=== PATIENT | male | born 1995 | race Caucasian/White ===

== ENCOUNTER → 2021-01-01 | Outpatient (CLI) | payer OTHER, SELFPAY | END | disposition home or self-care (01) | LOC: LABSPEC 16:05 | PROVIDERS: PCP Family Medicine; Referring Provider Physician Assistant Surgical; Visit Provider Physician Assistant Surgical | DX: Z20.822 Contact with and (suspected) exposure to COVID-19 (principal) | CPT/HCPCS: 87635; U0005; U0003 ==

== ENCOUNTER 2021-03-05 06:43 | Day surgery (SDC) | payer OTHER, SELFPAY ==
[2021-03-05] VITALS (9 sets, daily range): BP systolic 125–144; BP diastolic 77–89; PULSE 77–96; RESP 16; TEMP 36.3–37; O2SAT 91–95; BMI 28.0
[2021-03-05] MEDS: Lactated Ringers 1,000 ML 100 ML IV ×3 (07:00→12:45)
--- NOTE | 2021-03-05 08:15 | NASAL_PTH ---
PATIENT: CRISTIAN WHITMAN [place] [facility] [place][id number] AGE/SX: 25/M ROOM: RE03/05/[address]: Dr. Sean Iqbal MD : [id number] BED: DIS: 03/05/2021 SPEC #: [id number] RECD: 03/05/21 14:40 STATUS: CORBIN REMisti #: [id number] TRISTAN: 03/05/21 08:[address]: Sean Iqbal DEPT: SURGICAL PATHOLOGY RECD BY: Daina Paul ENTERED: 03/06/21 10:32 SP TYPE: NASAL SPEC OTHR DR: Cintia Feng, PHARMACIST INTERN-C Tissues: A - Ethmoid sinus, NOS B - Ethmoid sinus, NOS Procedures: Decalcification bone/plaque Surgery Specimen Level IV HEADER OPERATION: Open septoplasty with valve repair, turbinate reduction PRE-OP DIAGNOSIS: Nasal airway obstruction, deviated septum, chronic pansinusitis TISSUE SUBMITTED: A ? Right sinus contents and turbinates, B ? Left sinus contents and turbinates MICROSCOPIC DIAGNOSIS A. Right sinus and turbinates, excision: Consistent with chronic sinusitis. Fragments of bone with no pathologic change. B. Left sinus and turbinates, excision: Consistent with chronic sinusitis. Fragments of bone with no pathologic change. AM:jozef 03/11/2021 MICROSCOPIC DESCRIPTION Slides are reviewed. GROSS DESCRIPTION A - Received in fixative is one container labeled with the patient's name and designated right sinus contents and turbinate. The specimen consists of multiple fragments of hobbs soft tissue mixed with fragments of bone and turbinate that in aggregate measure 4 x 3 x 0.5 cm. A fragment of hobbs-pink polyp is also noted. The entire specimen is submitted in two cassettes after decalcification. B - Received in fixative is one container labeled with the patient's name and designated left sinus contents and turbinate. The specimen consists of multiple fragments of hemorrhagic soft tissue mixed with fragments of bone and turbinate that in aggregate measure 4.5 x 4 x 1 cm. Radioisotope Production Operator tissue is submitted in two cassettes after decalcification. / EZN:jozef 03/06/21 TC: 3 CPT: 59323 x2, 50552 x2
--- NOTE | 2021-03-05 08:26 | PCM.DC ---
Discharge Instructions Diet Discharge Diet: No restrictions Activity Discharge Activity: Return to Normal Activity Dressing / Incision Call your doctor if your incision/area has: Increased Pain/ Swelling Additional Dressing/Incision Instructions:: sleep with head of bed elevated. mupirocin to nose and incision twice daily. saline to nose 5 times daily. keep the bridge of your nose dry; however, the morning of your second follow up, get the bridge of your nose wet so the cast comes off easily in clinic. Follow Up Care Please Follow Up With: salima When: this thursday Test Results: Test results from this visit will be discussed in further detail at your follow-up appointment, if applicable. Discharge Plan Admission Attending Provider: Carlos Iqbal Primary Care Provider: Cintia Feng NP Discharge Orders/Prescriptions Prescriptions: No Action fluticasone propion-salmeterol [Wixela Inhub] 250-50 mcg/dose blister with device 1 inh INHALATION BID RF: 0 albuterol sulfate 90 mcg/actuation HFA aerosol inhaler 1 - 2 puff INHALATION PRN PRN (Reason: ASTHMA) RF: 0 cholecalciferol (vitamin D3) [Vitamin D3] 25 mcg (1,000 unit) Tablet 25 mcg PO DAILY RF: 0 Disposition Discharge Orders: Discharge Patient (Routine); Ordered 03/05/21 Ordered By: Dr. Carlos Iqbal
--- NOTE | 2021-03-05 08:30 | PCM.OPRPT ---
Problems Associated Problem List Diagnoses (1) Chronic pansinusitis: (2) Nasal congestion: (3) Polyp of nasal sinus: (4) Nasal septal deviation: (5) Nasal valve collapse: (6) Hypertrophy of inferior nasal turbinate: Report of Operation Date of Procedure: 03/05/21 Pre-Operative Diagnosis: 1. chronic pansinusitis 2. nasal septal deviation 3. polyp of nasal cavity 4. inferior turbinate hypertrophy, right and left 5. nasal valve collapse, right and left Post-Operative Diagnosis: 1. chronic pansinusitis 2. nasal septal deviation 3. polyp of nasal cavity 4. inferior turbinate hypertrophy, right and left 5. nasal valve collapse, right and left Surgery/Procedure Performed:: 1. open septorhinoplasty 2. submucous resection inferior turbinates, right and left 3. correction internal nasal valve collapse, right and left 4. endoscopic maxillary antrostomy with removal of contents, right and left 5. endoscopic total ethmoidecotmy, right and left 6. endoscopic sphenoidotomy with removal of contents, right and left 7. endoscopic frontal sinus exploration removal of contents, right and left 8. extensive removal nasal polyps, right and left Surgeon: Carlos Iqbal Type of Anesthesia: General Complications On the day of the procedure, after appropriate informed consent was obtained, the patient was brought to the operating room and placed in a supine position on the operating room table. The patient was placed under general endotracheal anesthesia by the anesthesiologist. The endotracheal tube was secured. The eyes were taped. The table was rotated 90 degrees towards the surgeon. Lacri-Lube was placed in the eyes and Tegaderm was placed over the eyes. The nose was injected with 1% lidocaine with epinephrine. The face was prepped and draped in sterile fashion. An inverted-V columellar incision was made with a [place] blade. This traversed into the left and right marginal incisions in the nose. It was opened with three-point retraction and an Iris scissors. The left and right lower lateral cartilages were skeletonized. This was taken to the left scroll region and the left upper lateral cartilages were skeletonized as was the right scroll region and right upper lateral cartilage. The anterior septal angle was found by lateralizing the medial crura. However, it was severely deviated to the left and off the maxillary crest. This was carefully dissected using the [place]-tip Bovie. The submucoperichondrial flaps were created with the Dade elevator, first on the left and then the right posteriorly to the bony cartilaginous junction and inferiorly to the maxillary crest. of note, the patient had a large preexisting well-healed posterior perforation in his septum. a 1.5cm L strut was maintained and the remainder of the cartilaginous septum was removed with a D knife or hesham elevator. the right and left upper lateral cartilages were disarticulated from the nasal septum with a 15 blade. 8mm x 2mm internal wire coating operator metal grafts were sutured into place between the upper lateral cartilages and the nasal septum with 4-0 PDS. the head of the right and left turbinates were injected with lidocaine/epinephrine. the head of the left inferior turbinate was incised with a 15 blade, dissected submucosally with a hesham elevator, reduced using suction electrocautery and outfractured using a boies elevator. the head of the right inferior turbinate was incised with a 15 blade, dissected submucosally with a hesham elevator, reduced using suction electrocautery and outfractured using a boies elevator. the submucoperichondrial flaps were reapproximated wtih 4-0 chromic, the inverted V columellar incision with 7-0 vicryl, and the marginal incisions with 4-[address] image guidance navigation was unable to be set up after multiple attempts and face mask changes. the zero degree endoscope was used to evaluate the nasal cavity. the superior attachment of the right and left middle turbinate and uncinate processes were injected with lidocaine/epinephrine. the left nasal cavity was evaluated. the middle turbinate was medialized. a large amount of polyps were removed from the middle meatus, sphenoethmoidal recess and frontal recess. a maxillary antrostomy and uncinectomy were performed with a hesham elevator and a khris cut. the antrostomy was widened with a back-biter. purulent material was evacuated. the ethmoid bulla was entered bluntly with the suction. a total ethmoidectomy was performed with a curette and an upgoing blakesley. this was taken superiorly to the skull base and laterally to the lamina. a stankewicz maneuver was performed and no laminar defect was noted. the natural sphenoid os was widened with the microdebrider and contents were evacuated. fungus was removed from the sphenoethmoidal recess. the frontal recess was explored and contents were evacuated. hemostasis was achieved with suction cautery; krzysztof was placed. the right nasal cavity was evaluated. the middle turbinate was medialized. a large amount of polyps were removed from the middle meatus, sphenoethmoidal recess and frontal recess. a maxillary antrostomy and uncinectomy were performed with a hesham elevator and a khris cut. the antrostomy was widened with a back-biter. purulent material was evacuated. the ethmoid bulla was entered bluntly with the suction. a total ethmoidectomy was performed with a curette and an upgoing blakesley. this was taken superiorly to the skull base and laterally to the lamina. a stankewicz maneuver was performed and no laminar defect was noted. the natural sphenoid os was widened with the microdebrider and contents were evacuated. fungus was removed from the sphenoethmoidal recess. the frontal recess was explored and contents were evacuated. hemostasis was achieved with suction cautery; krzysztof was placed. perez splints were sutured into place. a dorsal nasal splint was placed. a nasogastric tube was inserted orally and contents were evacuated. the table was rotated 90 degrees toward the anesthesiologist and was subsequently extubated uneventfully. he was transferred to the PACU in stable condition.
[2021-03-05] MEDS: Lidocaine 1% /Epi 1:100 (20ml) 20 ML Vial (09:05)
[2021-03-05] MEDS: Oxymetazoline 0.05% 1 SPRAY SPRAY.BTL 15 SPRAY ×2 (09:07→11:59)
[2021-03-05] MEDS: Mupirocin Ointment 22gm Tube 1 APPLIC (10:13)
--- NOTE | 2021-03-05 15:01 | EKG12_ITS ---
Test Reason : PRE OP Blood Pressure : / mmHG Vent. Rate : 090 BPM Atrial Rate : 090 BPM P-R Int : 146 ms QRS Dur : 092 ms QT Int : 360 ms P-R-T Axes : 075 077 048 degrees QTc Int : 440 ms Normal sinus rhythm Normal ECG Confirmed by ABIGAIL DRISCOLL, NICOLAS ([id number]), hot mill supervisor MACIEL GOLDMAN ([id number]) on 03/08/2021 1:55:52 PM Referred By: Carlos Iqbal Confirmed By:NICOLAS HAYES MD
[2021-03-05] MEDS: HYDROcodone Bitartrate/Apap 5/325 Tablet PO (15:16)
--- NOTE | 2021-03-05 15:35 | SUR.PHASEII ---
pt complained of chest/arm pain bilaterally, dr. Morgan advised, EKG done, Pt ok to go home and instructed to return to ER if pain persists or worsens.
== END 2021-03-05 16:36 | disposition home or self-care (01) ==
LOC: SDC 06:48 → AC 06:48
PROVIDERS: PCP Nurse Practitioner Primary Care; Referring Provider Otolaryngology; Visit Provider Otolaryngology
PROC: (CPT 30140; principal; 2021-03-05 07:45)
DX: J32.4 Chronic pansinusitis (principal); J33.9 Nasal polyp, unspecified; J34.2 Deviated nasal septum; J34.3 Hypertrophy of nasal turbinates; M95.0 Acquired deformity of nose; F41.9 Anxiety disorder, unspecified; F32.A Depression, unspecified; J45.909 Unspecified asthma, uncomplicated; Z79.899 Other long term (current) drug therapy
CPT/HCPCS: 30140; 30420; 30468; 31253; 31259; 31267; 87426; 88305; 88311; 93005; C9803; J7120; J2405

== ENCOUNTER → 2022-02-03 | Outpatient (CLI) | payer OTHER, SELFPAY ==
[2022-02-03 08:52] LABS: Absolute Lymphocyte Count 2.18 X10^3/uL (0.83-4.51); Absolute Neutrophil Count 4.3 X10^3/uL (2.0-7.7); Basophil# 0.12 X10^3/uL; Basophil% 1.3 % (0-1); Eosinophils% 21.8 % (0-5); Hematocrit 48.8 % (40-54); Hemoglobin 16.9 g/dL (13.0-16.5); Lymphocyte # 2.18 X10^3/ul (0.83-4.51); Lymphocyte % 23.7 % (19-41); Mean Corp Hgb Conc 34.6 g/dL (32-36); Mean Corpuscular Hgb 29.9 pg (27.0-32.0); Mean Corpuscular Volume 86.2 fL (80-94); Mean Platelet Vol. 10.4 fl (6.2-12.0); Monocyte# 0.51 X10^3/uL; Monocyte% 5.5 % (0-10); NRBC Flagged by Analyzer 0 % (0-5); Neutrophil # 4.34 X10^3/uL (2.7-7.7); Neutrophil % 47.3 % (47-70); Platelet Count 268 K/mm3 (150-450); RBC Distribution Width CV 12.1 % (11.6-14.6); RBC Distribution Width SD 38.4 fl (35.1-43.9); Red Blood Count 5.66 M/mm3 (4.6-6.2); White Blood Count 9.2 K/mm3 (4.4-11.0)
== END | disposition home or self-care (01) ==
PROVIDERS: PCP Nurse Practitioner Primary Care; Referring Provider Internal Medicine Pulmonary Disease; Visit Provider Internal Medicine Pulmonary Disease
DX: J45.50 Severe persistent asthma, uncomplicated (principal); J30.1 Allergic rhinitis due to pollen
CPT/HCPCS: 36415; 85025

== ENCOUNTER 2022-03-04 08:26 | Emergency (ER) | payer OTHER, SELFPAY ==
[2022-03-04] VITALS (9 sets, daily range): BP systolic 125–132; BP diastolic 79–89; PULSE 106–119; RESP 16–28; TEMP 36.7; O2SAT 91–95; BMI 27.7
--- NOTE | 2022-03-04 08:53 | RAD_ITS ---
STUDY: X-RAY CHEST REASON FOR EXAM: Male, 26 years old. Cough, SOB TECHNIQUE: Single AP portable view of the chest. COMPARISON: None. FINDINGS: EKG electrodes are seen. The lungs are clear and expanded. There is no demonstrated pleural abnormality. Normal size heart. Normal mediastinum and yuli. Normal visualized pulmonary arteries. Normal visualized aortic arch and descending thoracic aorta. Normal visualized thoracic spine. Normal visualized ribs, clavicles, and shoulders. There is no demonstrated abnormality of the visualized soft tissue structures of the upper abdomen. RAD/Chest 1 View (Portable) IMPRESSION: Normal x-ray examination of the chest. Electronically Signed: Avtar Wen MD at 9:51 EDT ,
--- NOTE | 2022-03-04 08:54 | EX.ED.DYSGE1 ---
HPI History of Present Illness Chief Complaint: Cough Informant: patient Onset/Context/Timing Onset: Days (4 to 5 days) Context: Gradual Onset Timing: Waxes and wanes Current Severity: Mild Maximum Severity: Moderate Narrative Narrative: Patient presents with 4 to 5-day history of cough and congestion. He has a history of asthma and has had increased wheezing. No fever has been noted. He does have body aches. He did not take a COVID test. PFSH PFSH Medical History Alcohol use Anxiety Asthma Depression History of steroid therapy Injury of head and neck Non-smoker Smoker Home Medications albuterol sulfate 90 mcg/actuation aerosol inhaler 1 - 2 puff inhalation PRN PRN ASTHMA 02/26/21 [History Last Taken Unknown] cholecalciferol (vitamin D3) 25 mcg (1,000 unit) tablet (Vitamin D3) 25 mcg PO DAILY 02/26/21 [History Last Taken Unknown] albuterol sulfate 2.5 mg/3 mL (0.083 %) solution for nebulization 2.5 mg (3 mL) inhalation Q4H PRN #25 vials 03/04/22 [Rx Last Taken Unknown] albuterol sulfate 90 mcg/actuation aerosol inhaler (Ventolin HFA) 2 puff inhalation Q4H PRN PRN Wheezing ##1 03/04/22 [Rx Last Taken Unknown] fluticasone 500 mcg-salmeterol 50 mcg/dose blistr powdr for inhalation 1 inh inhalation DAILY 03/04/22 [History Last Taken Unknown] prednisone 20 mg tablet 60 mg PO DAILY #15 tabs 03/04/22 [Rx Last Taken Unknown] Allergy/AdvReac Type Severity Reaction Status Date / Time No Known Allergies Allergy Verified 03/04/22 08:26 Surgical History Hx of nasal septoplasty Social History Smoking Status: Current some day smoker tobacco type: smokeless tobacco alcohol intake: current alcohol intake frequency: a few times a month Alcohol type: beer ROS ROS ED Constitutional Constitutional ED: Denies chills or fever(s) Eyes Eyes: Denies change in vision or discharge from eye(s) ENT ENT ED: Reports other Details: Congestion ; Denies discharge from eye(s), rhinorrhea or sore throat Cardiovascular Cardiovascular: Reports chest pain; Denies palpitations Respiratory/Chest Respiratory/Chest: Reports cough, dyspnea and other Details: Wheezing Gastrointestinal Gastrointestinal: Denies abdominal pain, diarrhea, nausea or vomiting Genitourinary Genitourinary ED: Denies difficulty urinating or dysuria Musculoskeletal Musculoskeletal: Reports myalgias; Denies back pain or extremity pain Integumentary Denies Abrasions or rash Neurologic Neurologic: Denies headache(s) or weakness Psychiatric Psychiatric: Denies anxiety or depression Allergic/Immunologic Allergic/Immunologic ED: Denies lip swelling or urticaria EXAM Physical Exam Const Vital Signs: 03/04/22 08:27 03/04/22 08:35 03/04/22 08:59 Temperature 98.0 F 98.0 F Temperature Source Temporal Temporal Pulse Rate 117 H 117 H Respiratory Rate 19 H 19 H Respiratory Effort Short of Breath Labored Respiratory Depth Normal Respiratory Pattern Normal Blood Pressure 132/89 H 132/89 H Blood Pressure Mean 103 103 Pulse Ox 91 91 Oxygen Delivery Method Room Air Room Air Room Air 03/04/22 09:23 03/04/22 09:23 03/04/22 09:23 Temperature Temperature Source Pulse Rate 106 H Respiratory Rate 22 H 20 H Respiratory Effort Respiratory Depth Respiratory Pattern Blood Pressure Blood Pressure Mean Pulse Ox 95 95 Oxygen Delivery Method Room Air Room Air 03/04/22 10:12 03/04/22 10:45 03/04/22 10:59 Temperature Temperature Source Pulse Rate 119 H 113 H 114 H Respiratory Rate 18 25 H 16 Respiratory Effort Respiratory Depth Respiratory Pattern Blood Pressure 125/79 H Blood Pressure Mean 94 Pulse Ox 92 Oxygen Delivery Method Room Air 03/04/22 11:02 Temperature Temperature Source Pulse Rate Respiratory Rate Respiratory Effort Respiratory Depth Respiratory Pattern Blood Pressure Blood Pressure Mean Pulse Ox 91 Oxygen Delivery Method Room Air Positive well nourished and well developed General Appearance ED: well developed HEENT Reports normocephalic and head/scalp atraumatic Eyes PERRL and EOMs intact bilaterally Neck supple Chest Wall inspection of chest normal and palpation of chest normal Resp Resp Narrative: Expiratory wheezes throughout. Cardio regular rhythm Rate: tachycardic GI normal to inspection, nondistended, normoactive bowel sounds Palpation: soft Extremity normal to inspection Neuro oriented x3 and no sensory deficits noted Sensorium / Orientation: alert Motor Exam: strength 5/5 throughout Psych mental status grossly normal Skin no rashes or lesions noted MDM MDM MDM Narrative Medical decision making narrative: COVID swab obtained. Portable chest x-ray ordered along with prednisone and aerosol treatments. Radiography Diagnostic Testing: Clinical Impression(s) from Imaging Studies Chest X-Ray 03/04/22 08:53 IMPRESSION: Normal x-ray examination of the chest. Electronically Signed: Avtar Wen MD at 9:51 EDT , Treatment and Re-Evaluation Narrative: COVID test is negative. Chest x-ray per my interpretation reveals no focal infiltrate. On repeat evaluation patient is still slightly tachycardic, likely secondary to the [id number] breathing treatments. He does have increased air movement and still has wheezing noted on the left. He states he is feeling like his lungs are opening up. He has plenty of nebulizer solution at home. I will write him a new albuterol inhaler as well as prednisone. Return instructions are provided. Discharge Plan Triage Chief Complaint: Cough ED Provider: Rhona Flanagan Dx/Rx/DC Orders Clinical Impression: URI (upper respiratory infection), Asthma exacerbation Instructions: ED Asthma, Acute (Adult), ED URI, Viral, No Abx (Adult) Prescriptions: New albuterol sulfate [Ventolin HFA] 90 mcg/actuation HFA aerosol inhaler 2 puff inhalation Q4H PRN PRN (Reason: Wheezing) Qty: 1 0RF prednisone 20 mg tablet 60 mg PO DAILY Qty: 15 0RF albuterol sulfate 2.5 mg /3 mL (0.083 %) solution for nebulization 2.5 mg inhalation Q4H PRN Qty: 25 0RF Rx Instructions: Use q4 hours and PRN for wheezing No Action albuterol sulfate 90 mcg/actuation HFA aerosol inhaler 1 - 2 puff INHALATION PRN PRN (Reason: ASTHMA) Label Comments: inhale 1 to 2 puffs by mouth every 4 to 6 hours if needed for cough or wheezing cholecalciferol (vitamin D3) [Vitamin D3] 25 mcg (1,000 unit) Tablet 25 mcg PO DAILY fluticasone propion-salmeterol 500-50 mcg/dose blister with device 1 inh INHALATION DAILY Label Comments: INHALE 1 PUFF TWICE DAILY WITH GOOD ORAL CARE Primary Care Provider: Cintia Feng NP Referrals: Cintia Feng NP, DIMPLING MACHINE OPERATOR-C [Primary Care Provider] - 3-5 Days if not improving Disposition Disposition: Home, Self Care
[2022-03-04] MEDS: predniSONE 20 MG Tablet 60 MG PO (09:19)
[2022-03-04] MEDS: Ipratropium/Albuterol Sulfate 3 ML AMPUL.NEB INHALATION (09:22)
[2022-03-04] MEDS: Albuterol 2.5 MG/3 ML VIAL.NEB. INHALATION ×3 (09:27→10:57)
== END 2022-03-04 11:50 | disposition home or self-care (01) ==
PROVIDERS: Emergency Provider Emergency Medicine; PCP Nurse Practitioner Primary Care; Visit Provider Emergency Medicine
DX: J06.9 Acute upper respiratory infection, unspecified (principal); J45.901 Unspecified asthma with (acute) exacerbation; F17.220 Nicotine dependence, chewing tobacco, uncomplicated; Z20.822 Contact with and (suspected) exposure to COVID-19; Z79.52 Long term (current) use of systemic steroids
CPT/HCPCS: 71045; 87811; 94640; 99251; 99283; G0463

== ENCOUNTER 2022-09-01 07:11 | Emergency (ER) | payer OTHER, SELFPAY ==
[2022-09-01 07:12] VITALS: BP 130/102; PULSE 82; RESP 16; TEMP 36.3; O2SAT 94; BMI 27.0
--- NOTE | 2022-09-01 07:40 | EKG12_ITS ---
Test Reason : CP Blood Pressure : / mmHG Vent. Rate : 079 BPM Atrial Rate : 079 BPM P-R Int : 138 ms QRS Dur : 096 ms QT Int : 378 ms P-R-T Axes : 061 077 055 degrees QTc Int : 433 ms Normal sinus rhythm Normal ECG Confirmed by LAVERNE DRISCOLL, MOISE ([id number]), publications editor MACIEL GOLDMAN ([id number]) on 09/04/2022 9:20:56 AM Referred By: BB Confirmed By:MOISE GALLOWAY MD
--- NOTE | 2022-09-01 07:41 | ED.VIS.CHEST ---
HPI History of Present Illness Chief Complaint: Chest Pain Informant: patient Onset/Context/Timing Onset: Hours (6) Activity at onset: sudden, activity on onset and sleep Timing: Continuous Quality: Positive for Burning and Sharp Location: Substernal (No radiation) Current Severity: Moderate Maximum Severity: Moderate Worsened By: Nothing; Not Worsened By Exertion, Movement of Arm, Movement of Torso, Breathing or Coughing Relieved By: Nothing (Positions, exertion, breathing makes no difference. Tried Tylenol did not help.) Associated Symptoms: Negative for Diaphoresis, Dyspnea, Cough, Fever, Lightheadedness or Palpitations Narrative Narrative: Patient presents with chest discomfort that woke him up in the middle the night. Nonpleuritic, has been there ever since. Has a history of significant asthma especially now in the spring, when his allergies tend to kick in, he states this does not feel like his asthma at all and feels very different, he can tell since he is used to that. He states prior to this, last night for dinner, he and his significant other had [place] and he had steak with his, he remembers swallowing a bite and having a piece of steak get stuck and having to vomit it back out, however he states he did not necessarily vomit he just got it up and then was able to finish his meal. He states getting steak stuck in his esophagus happens not uncommonly. He has never had to have an emergent EGD because of not being able to pass it or get it out. [facility] Medical History Alcohol use Anxiety Asthma Depression History of steroid therapy Injury of head and neck Non-smoker Smoker Home Medications albuterol sulfate 90 mcg/actuation aerosol inhaler 1 - 2 puff inhalation PRN PRN ASTHMA 02/26/21 [History Last Taken Unknown] fluticasone furoate 200 mcg-vilanterol 25 mcg/dose inhalation powder (Breo Ellipta) inhalation 09/01/22 [History Last Taken Unknown] pantoprazole 40 mg tablet,delayed release 40 mg PO DAILY #14 tabs 09/01/22 [Rx Last Taken Unknown] Allergy/AdvReac Type Severity Reaction Status Date / Time No Known Allergies Allergy Verified 09/01/22 07:15 Surgical History Hx of nasal septoplasty Social History Smoking Status: Former smoker alcohol intake: current alcohol intake frequency: a few times a month Alcohol type: beer ROS ROS ED Constitutional Constitutional ED: Denies chills or fever(s) Eyes Eyes: Denies change in vision or diplopia ENT ENT ED: Denies rhinorrhea or sore throat Cardiovascular Cardiovascular: Reports chest pain; Denies palpitations Respiratory/Chest Respiratory/Chest: Denies cough or dyspnea Gastrointestinal Gastrointestinal: Denies abdominal pain, diarrhea or nausea Genitourinary Genitourinary ED: Denies dysuria or hematuria Musculoskeletal Musculoskeletal: Denies back pain or neck pain Integumentary Denies abscess or rash Neurologic Neurologic: Denies headache(s), paresthesias or weakness Psychiatric Psychiatric: Denies anxiety or suicidal thoughts EXAM Physical Exam Const Vital Signs: 09/01/22 07:12 Temperature 97.4 F L Temperature Source Temporal Pulse Rate 82 Respiratory Rate 16 Blood Pressure 130/102 H Blood Pressure Mean 111 Pulse Ox 94 Oxygen Delivery Method Room Air Positive well nourished and well developed General Appearance ED: well developed and NAD HEENT Reports moist mucous membranes normocephalic and atraumatic Eyes PERRL and EOMs intact bilaterally Neck full ROM and supple Chest Wall inspection of chest normal and palpation of chest normal Resp normal respiratory effort Auscultation: wheezes expiratory wheezes (Mild) and throughout Cardio regular rate, regular rhythm and no murmurs GI non-distended GI Narrative: Mild epigastric tenderness. No pulsatile mass. No guarding or rebound. Auscultation: normoactive bowel sounds Palpation: soft Back/Spine no CVA tenderness General Back: other FROM Extremity normal to inspection General Extremety ED: Negative for edema, pulses abnormal or tenderness General Extremity: Negative for edema or pulses abnormal Neuro oriented x3, CN's II-XII intact bilaterally and no sensory deficits noted Sensorium / Orientation: awake and alert Motor Exam: strength 5/5 throughout Skin no rashes or lesions noted and no wounds MDM MDM MDM Narrative Medical decision making narrative: I suspect esophageal etiology of this discomfort, especially in context of his normal EKG and history of dysphagia with the episode that occurred last night prior to going to bed. I given a GI cocktail and monitored him, he states the burning resolved as a result of this and he is in agreement with me. I do not think he needs other testing right now. I think his pulse ox 94% is a little borderline because of his asthma he states this is good/normal for him in the spring and he does not feel like he is having an asthma flareup right now. He was given Protonix here, we will give him a 2-week course with instructions for use and follow-up with GI routinely, to evaluate for EGD/dilatation. In discussing this, he states there is a family history of this and his dad and another one of his family members, needing esophageal dilatations for similar issues. Rhythm Strip Rhythm Strip: Sinus Rhythm Rate: 80 Ectopy: None EKG Initial EKG: Attestation: I personally reviewed and interpreted this EKG as follows: Interpretation: Sinus Rhythm and No Acute Injury Pattern Comments: Normal EKG. Rate 79. Discharge Plan Triage Chief Complaint: Chest Pain ED Provider: Stan Whitt Dx/Rx/DC Orders Clinical Impression: Chest pain due to GERD, Esophageal dysphagia Instructions: Medicines for Acid Reflux, ED Dysphagia (Adult) Prescriptions: New pantoprazole 40 mg tablet,delayed release (DR/EC) 40 mg PO DAILY Qty: 14 0RF No Action albuterol sulfate 90 mcg/actuation HFA aerosol inhaler 1 - 2 puff INHALATION PRN PRN (Reason: ASTHMA) Label Comments: inhale 1 to 2 puffs by mouth every 4 to 6 hours if needed for cough or wheezing fluticasone furoate-vilanterol [Breo Ellipta] 200-25 mcg/dose blister with device INHALATION Label Comments: INHALE 1 PUFF BY MOUTH ONCE DAILY. USE GOOD ORAL CARE AFTER USE Primary Care Provider: Cintia Feng NP Referrals: Dallas Renae DO [Med Staff - Active Staff] - (call for appt for EGD evaluation) Cintia Feng NP, CERTIFIED CYTOTECHNOLOGIST-C [Primary Care Provider] - Disposition Disposition: Home, Self Care
[2022-09-01] MEDS: Mag Hydrox/Al Hydrox/Simeth 30 ML UDC PO (07:44)
[2022-09-01] MEDS: Pantoprazole Sodium 40 MG Tablet PO (07:44)
[2022-09-01 08:24] VITALS: BP 138/88; PULSE 87; RESP 18; O2SAT 97
== END 2022-09-01 08:31 | disposition home or self-care (01) ==
PROVIDERS: Emergency Provider Emergency Medicine; PCP Nurse Practitioner Primary Care; Visit Provider Emergency Medicine
DX: R07.9 Chest pain, unspecified (principal); K21.9 Gastro-esophageal reflux disease without esophagitis; Z87.891 Personal history of nicotine dependence; R13.19 Other dysphagia; J45.909 Unspecified asthma, uncomplicated
CPT/HCPCS: 93005; 99284

== ENCOUNTER → 2023-04-30 | Outpatient (CLI) | payer OTHER, SELFPAY ==
[2023-04-30 10:06] LABS: Absolute Lymphocyte Count 2.49 X10^3/uL (0.83-4.51); Absolute Neutrophil Count 4.5 X10^3/uL (2.0-7.7); Basophil# 0.09 X10^3/uL; Eosinophil# 0.81 X10^3/uL; Eosinophils% 9.3 % (0-5); Hematocrit 49.8 % (40-54); Lymphocyte # 2.49 X10^3/ul (0.83-4.51); Lymphocyte % 28.6 % (19-41); Mean Corp Hgb Conc 34.1 g/dL (32-36); Mean Platelet Vol. 10.6 fl (6.2-12.0); Monocyte# 0.78 X10^3/uL; NRBC Flagged by Analyzer 0 % (0-5); Neutrophil # 4.49 X10^3/uL (2.7-7.7); Neutrophil % 51.5 % (47-70); Platelet Count 266 K/mm3 (150-450); RBC Distribution Width CV 12.1 % (11.6-14.6); RBC Distribution Width SD 37.3 fl (35.1-43.9); Red Blood Count 5.86 M/mm3 (4.6-6.2); White Blood Count 8.7 K/mm3 (4.4-11.0)
[2023-05-05 17:07] LABS: Aspirgillus flavus Negative (Neg:<1:1); Aspirgillus fumigatus Negative (Neg:<1:1); Aspirgillus niger Negative (Neg:<1:1); Cytoplasmic Ab (C-ANCA) <1:20 titer (Neg:<1:20); Immunoglobulin E 402 IU/mL (6-495); Perinuclear Ab (P-ANCA) <1:20 titer (Neg:<1:20)
[2023-05-06 06:08] LABS: Alternaria tenuis 0.12 kU/L (Class 0/I); Ash, White <0.10 kU/L (Class 0); Aspergillus fumigatus <0.10 kU/L (Class 0); Bermuda Grass 0.17 kU/L (Class 0/I); Birch <0.10 kU/L (Class 0); Black Walnut 0.13 kU/L (Class 0/I); Cedar, Mountain <0.10 kU/L (Class 0); Cladosporium herbarum <0.10 kU/L (Class 0); Cockroach, American 0.26 kU/L (Class 0/I); Cottonwood 0.14 kU/L (Class 0/I); D farinae Mite 0.55 kU/L (Class I); D pteronyssinus 0.56 kU/L (Class II); Elm, American White 0.11 kU/L (Class 0/I); Immunoglobulin E 484 IU/mL (6-495); Maple/Box Elder <0.10 kU/L (Class 0); Mouse Urine 0.14 kU/L (Class 0/I); Mulberry, White <0.10 kU/L (Class 0); Oak, White <0.10 kU/L (Class 0); Pecan <0.10 kU/L (Class 0); Penicillium Notatum <0.10 kU/L (Class 0); Pigweed, Rough <0.10 kU/L (Class 0); Ragweed, Short/Common 0.13 kU/L (Class 0/I); Russian Thistle <0.10 kU/L (Class 0); Sheep Sorrel <0.10 kU/L (Class 0); Sycamore, American <0.10 kU/L (Class 0); Timothy Grass 0.11 kU/L (Class 0/I)
== END | disposition home or self-care (01) ==
LOC: PAVLAB 09:53
PROVIDERS: PCP Nurse Practitioner Primary Care; Referring Provider Internal Medicine Critical Care Medicine; Visit Provider Internal Medicine Critical Care Medicine
DX: J45.909 Unspecified asthma, uncomplicated (principal)
CPT/HCPCS: 36415; 82785; 85025; 86003; 86256; 86606

== ENCOUNTER → 2023-05-05 | Outpatient (CLI) | payer OTHER, SELFPAY ==
--- NOTE | 2023-05-07 06:25 | PFTCOMP_ITS ---
COMPLETE PULMONARY FUNCTION TEST INTERPRETATION Brief HPI: Patient is a 28-year-old male, currently under the care of Dr. Mckeon, who presents to [facility] for complete pulmonary function tests secondary to diagnosis of asthma. Respiratory therapist reports good effort and reproducible results. Interpretation: Forced expiration spirometry shows a moderately severe large airways obstructive ventilatory defect with an FEV1 of 53% predicted. There is no significant bronchodilator response by strict ATS criteria. Spirograms are of good quality and plateau slowly, indicating slowly emptying areas of the lungs. The respiratory flow volume loop shows decreased expiratory flow rates at all lung volumes consistent with airway obstruction. Lung volumes by body plethysmography show a normal total lung capacity at 7.64 L, 104% predicted. FRC and RV are elevated out of proportion. Lung volume measurements are consistent with hyperinflation and air-trapping. Diffusion capacity by carbon monoxide is normal at 92% predicted. The airway resistance is elevated. No previous pulmonary function tests were available for review. Impression: Irreversible moderately severe large airways obstructive ventilatory defect, resulting in air trapping, but preserved diffusion capacity
== END | disposition home or self-care (01) ==
LOC: PSN 09:59
PROVIDERS: PCP Nurse Practitioner Primary Care; Referring Provider Internal Medicine Critical Care Medicine; Visit Provider Internal Medicine Critical Care Medicine
DX: J45.909 Unspecified asthma, uncomplicated (principal)
CPT/HCPCS: 94060; 94726; 94729